=== PATIENT | male | born 1990 | race Caucasian/White ===

== ENCOUNTER → 2018-03-07 | Day surgery (SDC) | payer OTHER ==
[2018-03-07 13:01] VITALS: BP 129/83; PULSE 65; RESP 16; TEMP 97.8
--- NOTE | 2018-03-08 08:00 | P.PCN ---
Preoperative Diagnosis: Diagnosis Syncope Twelve-lead ECG Sinus rhythm normal ND narrow QRS, early repolarization abnormality inferolaterally normal heart rates Tilt table test Tilt table test per protocol Baseline blood pressure 117/71 mmHg Baseline heart rate 82 beats a minute Patient's heart rate and blood pressure response remained normal throughout the tilt table test and he was laid supine at the end of the procedure Impression Normal tilt table test Normal twelve-lead ECG
== END ==
LOC: CATHEP 12:00
PROVIDERS: ATTEND Internal Medicine Clinical Cardiac Electrophysiology
DX: R55 Syncope and collapse (principal)
CPT/HCPCS: 93660

== ENCOUNTER 2018-03-24 19:39 | Emergency (ER) | payer OTHER ==
[2018-03-24 19:51] VITALS: BP 117/79; PULSE 87; RESP 18; TEMP 98.5
--- NOTE | 2018-03-24 20:15 | ED ---
General Adult HPI - General Chief complaint: Extremity Injury, Upper Stated complaint: left arm pain & numbness X 2 months Time Seen by Provider: 03/24/18 19:51 Source: patient Mode of arrival: ambulatory Limitations: no limitations - History of Present Illness Initial comments: 27-year-old male past medical history syncope and traumatic brain injury presenting today for cc of tingling/sharp shooting pain in left arm, both legs x3 months. Pt states that he has been having sharp shooting pain and tingling in his UE bilaterally L>R and bilateral LE. Pt states that the pain occurs when he bends his elbows/ or knee for long periods of time. Pt describes the pain as a sharp shooting pain with some tingling. Pt stated initially he was concerned about his circulation and had a work-up done at [facility] however he states they were not able to find anything. Patient denies any calf pain, lower extremity swelling, upper extremity swelling, recent travel, hemoptysis, cough, chest pain, shortness of breath, jaw pain, abdominal pain, loss sensation of the upper or lower extremities, pallor, coolness or color changes, headache, visual changes, nausea, vomiting, diplopia, speech changes, gait changes, memory changes. Pt denies any trauma to the neck/back/shoulders. Pt denies history of diabetes. Pt presented today because it has been going on so long. Upon arrival pt is not in acute distress. Pt appears well, VS within acceptable limits. - Related Data Home Medications Medication Instructions Recorded Confirmed Dextroamphetamine/Amphetamine 30 mg PO BID 02/28/18 [Adderall] Allergies Allergy/AdvReac Type Severity Reaction Status Date / Time No Known Allergies Allergy Verified 03/24/18 19:51 Review of Systems ROS Statement: Those systems with pertinent positive or pertinent negative responses have been documented in the HPI. ROS Other: All systems not noted in ROS Statement are negative. Constitutional: Denies: fever, chills, night sweats Eyes: Denies: eye pain ENT: Denies: ear pain, throat pain Respiratory: Denies: cough, dyspnea, wheezes, hemoptysis, stridor Cardiovascular: Denies: chest pain, palpitations Gastrointestinal: Denies: abdominal pain, nausea, vomiting, diarrhea Genitourinary: Denies: urgency, frequency, hematuria Musculoskeletal: Denies: as per HPI Skin: Denies: rash, lesions Neurological: Reports: paresthesias. Denies: headache, weakness, numbness, confusion, abnormal gait Past Medical History Past Medical History: Asthma, CVA/TIA, Osteoarthritis (OA), Syncope Additional Past Medical History / Comment(s): "chronic migraine syndrome", "migraine induced seizures"-last one 4 months ago, "TIA"- no residual effects, See Dr Garibay H&P, fatigue and dizziness, "numbness of hands,arms and legs" , syncope 10 yrs ago History of Any Multi-Drug Resistant Organisms: None Reported Past Surgical History: Adenoidectomy, Tonsillectomy Additional Past Surgical History / Comment(s): cyst removed from tailbone, Past Anesthesia/Blood Transfusion Reactions: Motion Sickness Past Psychological History: Anxiety Smoking Status: Current some day smoker Past Alcohol Use History: None Reported, Occasional Past Drug Use History: None Reported General Exam - General Exam Comments Initial Comments: General: The patient is awake and alert, in no distress, and does not appear acutely ill. Eye: +3 mm pupils are equal, round and reactive to light, extra-ocular movements are intact. No nystagmus. There is normal conjunctiva bilaterally. No signs of icterus. Ears, nose, mouth and throat: There are moist mucous membranes and no oral lesions. Neck: The neck is supple, there is no tenderness or JVD. Cardiovascular: There is a regular rate and rhythm. No murmur, rub or gallop is appreciated. Respiratory: Lungs are clear to auscultation, respirations are non-labored, breath sounds are equal. No wheezes, stridor, rales, or rhonchi. Musculoskeletal: No pallor, coolness of the extremities, masses or lesions noted of the upper or lower extremity. No pain to a palpation of the deep venous system of the upper or lower extremities. Normal ROM, no tenderness of the UE or LE bilaterally. Pt admits to shooting pain with flexion of elbows and knees. Strength 5/5 of the UE and LE equally b/l. Sensation intact of the UE and LE equally b/l. DP and radial pulses equal bilaterally 2+. Neurological: A&O x 3. CN II-XII intact, There are no obvious motor or sensory deficits. Coordination appears grossly intact. Speech is normal. Skin: Skin is warm and dry and no rashes or lesions are noted. Psychiatric: Cooperative, appropriate mood & affect, normal judgment. Limitations: no limitations Course Vital Signs 03/24/18 19:48 Temperature 98.5 F Pulse Rate 87 Respiratory 18 Rate Blood Pressure 117/79 O2 Sat by Pulse 98 Oximetry EKG Findings - EKG Comments: EKG Findings:: A 12-lead EKG was performed and shows the following: Rate is 69bpm, and rhythm is normal sinus. There are normal QRS complexes and normal R- wave progression. ST segments have no elevation or depression, and FL segments appear normal. EKG evaluated by myself and Dr. Coello. Medical Decision Making - Medical Decision Making Patient complains of shooting pains of the upper and lower extremities with flexion at the elbows and knees concerning for neuropathy. There were no noted focal neurological symptoms or symptoms concerning for acute intracranial process. Because patient stated that left arm is greater than right arm EKG was obtained revealing normal sinus rhythm there is no acute changes concerning for acute coronary syndrome, or arrhythmia. Patient denies any symptoms associated with the sharp shooting pains he denies any recent injuries or trauma. At this time is unclear the etiology of patient's symptoms however they appear chronic in nature. Patient was encouraged to follow up with neurology for further evaluation. Patient is agreeable with plan. He is discussed in detail with who agreed with impression and plan. pt vital signs stable, pt discharged in stable condition with primary care and neurology f/u. Disposition Clinical Impression: Lower extremity pain, bilateral, Upper extremity pain, diffuse, Pain of left upper extremity Disposition: HOME SELF-CARE Condition: Good Additional Instructions: Please follow-up with family doctor in the next 2 days. Please seek neurological evaluation in next 2-3 days. Please return to emergency room if the symptoms increase or worsen or for any other concerns. Is patient prescribed a controlled substance at d/c from ED?: No Referrals: Estela Savage DO [Primary Care Provider] - 1-2 days Mike Morris MD [STAFF PHYSICIAN] - 1-2 days Time of Disposition: 20:53
== END 2018-03-24 20:59 | disposition home or self-care (01) ==
LOC: EC 19:39
DX: M79.604 Pain in right leg (principal); M79.605 Pain in left leg; M79.602 Pain in left arm; F17.200 Nicotine dependence, unspecified, uncomplicated; Z79.899 Other long term (current) drug therapy; Z86.73 Personal history of transient ischemic attack (TIA), and cerebral infarction without residual deficits
CPT/HCPCS: 93005; 99284